=== PATIENT | male | born 1995 | race Caucasian/White ===

== ENCOUNTER 2017-12-02 18:16 | Emergency (ER) | payer SELFPAY ==
[~2017-12-02] VITALS: Ht 180.3 cm; Wt 143.2 kg
[2017-12-02 18:43] VITALS: Ht 180.3 cm; Wt 143.2 kg
[2017-12-02] MEDS ORDERED: ADIPEX-P37.5 MG PO (18:45)
[2017-12-02] MEDS ORDERED: ROBAXIN500 MG PO (21:55)
[2017-12-02] MEDS ORDERED: NAPROSYN500 MG PO (21:55)
[2017-12-02 22:08] VITALS: BP 125/80
== END 2017-12-02 22:09 | disposition home or self-care (01) ==
LOC: D.ER 18:16
DX: S49.92XA Unspecified injury of left shoulder and upper arm, initial encounter (principal); X58.XXXA Exposure to other specified factors, initial encounter; Y93.89 Activity, other specified; Y92.89 Other specified places as the place of occurrence of the external cause; M25.512 Pain in left shoulder